=== PATIENT | male | born 1995 | race Two or more races ===

== ENCOUNTER 2024-03-29 08:13 | Emergency (ER) | payer BC ==
[~2024-03-29] VITALS: Ht 188 cm; Wt 124.0 kg
[2024-03-29 08:28] VITALS: BP 132/87; PULSE 60; RESP 16; TEMP 98.2; O2SAT 100
== END 2024-03-29 13:12 | disposition home or self-care (01) ==
LOC: ER 09:48
DX: S29.012A Strain of muscle and tendon of back wall of thorax, initial encounter (principal); X58.XXXA Exposure to other specified factors, initial encounter; Y93.89 Activity, other specified; Y92.89 Other specified places as the place of occurrence of the external cause; Y99.8 Other external cause status
CPT/HCPCS: 72146; 72148; 72192; 99284